=== PATIENT | male | born 2005 | race Caucasian/White ===

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

== ENCOUNTER 2025-07-21 18:16 | Emergency (ER) | payer OTHER ==
[2025-07-21] MEDS: Ketorolac 30 MG/ML SDV IVPUSH ONE (19:06)
[2025-07-21 19:18] LABS: BASOPHILS ABSOLUTE AUTO 0.03 K/uL (0.02-0.10); BASOPHILS PERCENT AUTO 0.3 % (0.0-0.5); EOSINOPHILS ABSOLUTE AUTO 0.09 K/uL (0.04-0.40); EOSINOPHILS PERCENT AUTO 1.0 % (1.0-5.0); LYMPHOCYTES ABSOLUTE AUTO 2.48 K/uL (1.50-4.00); LYMPHOCYTES PERCENT AUTO 27.2 % (20.0-40.0); MEAN PLATELET VOLUME 9.9 fL (6.0-10.0); MONOCYTES ABSOLUTE AUTO 0.67 K/uL (0.20-0.80); MONOCYTES PERCENT AUTO 7.3 % (3.0-10.0); NEUTROPHILS ABSOLUTE AUTO 5.85 K/uL (2.00-7.50); NEUTROPHILS PERCENT AUTO 64.2 % (45.0-70.0); PLATELET COUNT,PLT 234 K/uL (150-400); RED BLOOD CELL COUNT 4.95 M/uL (4.50-6.50); RED CELL DISTRIBUTION WIDTH 12.3 % (11.0-16.0); WHITE BLOOD CELL COUNT,WBC 9.1 K/uL (4.0-11.0)
[2025-07-21 19:29] LABS: GLUCOSE,URINE NEGATIVE (NEGATIVE); OCCULT BLOOD,URINE NEGATIVE (NEGATIVE)
[2025-07-21 19:29] LABS: A/G RATIO 1.5 (0.8-2.0); BILIRUBIN TOTAL 0.7 mg/dL (0.0-1.0); BLOOD UREA NITROGEN,BUN 17.0 mg/dL (8-26); CARBON DIOXIDE,CO2 27.3 mmol/L (21.0-32.0); CHLORIDE,CL 104.0 mmol/L (98-107); CREATININE 0.9 mg/dL (0.70-1.30); EST CRCL DRUG DOSING (CG) 123.65 mL/min; ESTIMATED GFR 124.0 mL/min (>60); GLUCOSE RANDOM 78.0 mg/dL (74-100); POTASSIUM,K 3.9 mmol/L (3.5-5.1); PROTEIN TOTAL,TP 7.3 g/dL (6.4-8.2); SODIUM,NA 141.0 mmol/L (136-145)
[2025-07-21 19:34] LABS: APPEARANCE,URINE SLIGHTLY CLOUDY (CLEAR); EPITHELIAL CELLS,URINE FEW /HPF
[2025-07-21 19:40] LABS: ALANINE AMINOTRANSFERASE,ALT 16.0 U/L (12-78); ASPARTATE AMNIOTRANSFERASE,AST 15.0 U/L (15-37)
[2025-07-21] MEDS: Magnesium Citrate Solution 296 ML Bottle PO ONE (19:53)
== END 2025-07-21 19:57 | disposition home or self-care (01) ==
LOC: LB.ED 18:16
DX: K59.00 Constipation, unspecified (principal)
CPT/HCPCS: 36415; 74019; 80053; 81001; 83690; 85025; 96374; 99284; A9270; J1885